=== PATIENT | male | born 1930 | race Caucasian/White ===

== ENCOUNTER 2020-04-12 10:19 | Outpatient (CLI) | payer MEDICARE, OTHER ==
[~2020-04-12 10:19] MED LIST: ALLO300T PO; AMLO-150 PO; ASPI-496 PO; ATOR20TA37 PO; CLON0.1T22 PO; ERGO500017 PO; FURO40TA6 PO; FURO80TA3 PO; GLUC1CAP48 PO; LISI30TA4 PO; LOSA100T14 PO; METR500T PO; REGADENOSON 0.4 MG/5 ML SYRINGE ONE; SEVE800T8 PO; SPIR25TA5 PO; VIT1TABL32 PO
== END 2020-04-13 23:59 | disposition home or self-care (01) ==
LOC: CFH 10:19
PROVIDERS: ATTEND Internal Medicine Cardiovascular Disease
DX: I08.0 Rheumatic disorders of both mitral and aortic valves (principal); I48.91 Unspecified atrial fibrillation; I21.29 ST elevation (STEMI) myocardial infarction involving other sites; I11.9 Hypertensive heart disease without heart failure
CPT/HCPCS: 78452; 93017; 93306; A9502; J2785

== ENCOUNTER 2020-08-29 19:38 | Emergency (ER) | payer MEDICARE, OTHER ==
[~2020-08-29] VITALS: Ht 185.4 cm; Wt 105.0 kg
[~2020-08-29 19:38] MED LIST changes: +ALLO100T30 PO; +APIX2.5T PO; +DOXA1TAB PO; +DOXY100T PO; -REGADENOSON 0.4 MG/5 ML SYRINGE ONE
--- NOTE | 2020-08-29 20:15 | NUR ---
PER PT DAUGHTER, DIALYSIS PORT PLACED 6 DAYS AGO, ONE EPISODE OF BLEEDING AT HOME THAT DAUGHTER WAS ABLE TO STOP BY HOLDING PRESSURE. PT RESENTS TODAY WITH C/O BLEEDING AT PORT SITE. SITE CLEANED OF ALL BLOOD CLOTS AND ASSESSED BY DR PLUNKETT. PER DAUGHTER, PT TAKES NO BLOOD THINNERS.
[2020-08-29] MEDS ORDERED: MICROFIBRILLAR COLLAGEN 1 GM TP ONE ×2 (20:45→21:00)
--- NOTE | 2020-08-29 20:45 | NUR ---
AVETINE AND SANDBAG PLACED TO STOP BLEEDING
[2020-08-29 20:46] LABS: ALBUMIN 2.8 g/dL (3.4-5.0); ANION GAP 7 mmol/L (5-15); CALCIUM 8.6 mg/dL (8.5-10.1); CHLORIDE 98 mmol/L (98-107); CREATININE 4.08 mg/dL (0.7-1.3)
[2020-08-29 20:49] LABS: BASOPHILS % (AUTO) 0 % (0-1); EOSINOPHILS % (AUTO) 0 % (1-7); LYMPHOCYTES % (AUTO) 9 % (22-44); MEAN CORPUSCULAR HEMOGLOBIN 35.7 pg (27.5-34.5); MEAN CORPUSCULAR HGB CONC 33.6 g/dL (33.2-36.2); MEAN PLATELET VOLUME 9.7 fL (7.4-10.4); MONOCYTES % (AUTO) 6 % (2-9); NEUTROPHILS % (AUTO) 85 % (42-75); PLATELET COUNT 53 x10^3/uL (130-400); RED BLOOD COUNT 2.45 x10^6/uL (4.38-5.82); RED CELL DISTRIBUTION WIDTH 15.5 % (9.4-14.8)
[2020-08-29 21:18] LABS: INTERNATIONAL NORMALIZED RATIO 1.04 (0.93-1.1); PROTHROMBIN TIME 11.1 Seconds (9.6-11.5)
--- NOTE | 2020-08-29 21:23 | NUR ---
PORT RE ASSESSED. STILL BLEEDING. DR PLUNKETT NOTIFIED
--- NOTE | 2020-08-29 21:52 | NUR ---
UNSUCCESSFUL IV ATTEMPT. LANORA IN TO ATTEMPT IV FOR CT SCAN
--- NOTE | 2020-08-29 21:56 | NUR ---
UNSUCCESSFUL ATTEMPT BY ALEXANDRA ALSO
--- NOTE | 2020-08-29 22:03 | NUR ---
AMRIK AT BEDSIDE TO ATTEMPT ULTRASOUND IV
--- NOTE | 2020-08-29 22:08 | NUR ---
DR PLUNKETT AT BEDSIDE TO REASSESS PORT. STILL BLEEDING. SANDBAG REMAINS IN PLACE
[2020-08-29] MEDS ORDERED: LIDOCAINE 1%-EPI 1:100K, 20ML INFIL ONE (22:30)
--- NOTE | 2020-08-29 22:45 | NUR ---
DR PLUNKETT AT BEDSIDE TO REVISE DIALYSIS PORT ENTRY SITE. NO BLEEDING OBVIOUS AFTER LIDO/EPI AND NEW SUTURES. KURLEX AND COBAND APPLIED. SANDBAG FOR ADDITIONAL 30 MINS TO ENSURE BLEEDING HAS STOPPED.
--- NOTE | 2020-08-29 23:36 | NUR ---
DR PLUNKETT STATES NOT TO TREAT HTN. PT TO RESUME HOME MED SCHEDULE AT HOME. SAD BAG WAS REMOVED AT 2315 AND NO SIGNS OF BLEEDING.
--- NOTE | 2020-08-29 23:37 | NUR ---
IS PROVIDED TO PT AND EDUCATED ON ITS USE. FAMILY EDUCATED WELL
[2020-08-30] MEDS ORDERED: DOXAZOSIN 1MG TABLET PO ONE
[2020-08-30 00:09] VITALS: BP 184/84
--- NOTE | 2020-08-30 00:09 | NUR ---
CARE ASSUMED FOR DC. PT DC'D HOME WITH FAMILY. TO DC DESK BY W/C.
== END 2020-08-30 00:11 | disposition home or self-care (01) ==
LOC: ED 21:08
DX: S21.111A Laceration without foreign body of right front wall of thorax without penetration into thoracic cavity, initial encounter (principal); L76.82 Other postprocedural complications of skin and subcutaneous tissue; I11.0 Hypertensive heart disease with heart failure; I50.9 Heart failure, unspecified; I48.91 Unspecified atrial fibrillation; X58.XXXA Exposure to other specified factors, initial encounter; Y93.89 Activity, other specified; Y92.89 Other specified places as the place of occurrence of the external cause; Y99.8 Other external cause status
CPT/HCPCS: 12001; 12031; 36415; 71045; 80048; 82040; 85025; 85610; 85730; 99284

== ENCOUNTER 2020-10-21 12:57 | Inpatient (IN) | payer MEDICARE, OTHER ==
[~2020-10-21] VITALS: Ht 180.3 cm; Wt 115.5 kg
[2020-10-21] MEDS ORDERED: PLEASE ENTER HEIGHT AND WEIGHT MC SCH (13:30)
[2020-10-21] MEDS ORDERED: SODIUM CHLORIDE FLUSH 10ML SYR IVF ONE (13:30)
[2020-10-21 14:13] LABS: BASOPHILS % (AUTO) 1 % (0-1); EOSINOPHILS % (AUTO) 1 % (1-7); LYMPHOCYTES % (AUTO) 11 % (22-44); MEAN CORPUSCULAR HEMOGLOBIN 34.3 pg (27.5-34.5); MEAN PLATELET VOLUME 10.5 fL (7.4-10.4); MONOCYTES % (AUTO) 7 % (2-9); NEUTROPHILS % (AUTO) 82 % (42-75); PLATELET COUNT 116 x10^3/uL (130-400); RED BLOOD COUNT 3.39 x10^6/uL (4.38-5.82); RED CELL DISTRIBUTION WIDTH 14.9 % (9.4-14.8)
[2020-10-21 14:23] LABS: ALBUMIN 3.1 g/dL (3.4-5.0); ANION GAP 9 mmol/L (5-15); CHLORIDE 105 mmol/L (98-107)
[2020-10-21 14:26] LABS: ALANINE AMINOTRANSFERASE 13 U/L (12-78); ALKALINE PHOSPHATASE 64 U/L (45-117); BILIRUBIN,TOTAL 0.8 mg/dL (0.2-1.0); CREATININE 8.91 mg/dL (0.7-1.3); TOTAL PROTEIN 6.8 g/dL (6.4-8.2)
[2020-10-21] MEDS ORDERED: ONDANSETRON ODT 4 MG PO PRN (15:30)
[2020-10-21] MEDS ORDERED: ENALAPRILAT 1.25 MG/ML, 2ML IVPush PRN (15:30)
[2020-10-21] MEDS ORDERED: HEPARIN 5,000 UNITS/ML, 1ML SQ SCH (15:30)
[2020-10-21] MEDS ORDERED: ONDANSETRON 2MG/ML, 2ML IVPush PRN (15:30)
[2020-10-21] MEDS ORDERED: DOCUSATE 100 MG CAPSULE PO PRN (15:30)
[2020-10-21] MEDS ORDERED: MELATONIN 5 MG TABLET PO PRN (15:30)
[2020-10-21] MEDS ORDERED: SODIUM CHLORIDE FLUSH 10ML SYR IVF PRN ×2 (15:30)
[2020-10-21] MEDS ORDERED: ACETAMINOPHEN 325 MG TABLET PO PRN (15:30)
--- NOTE | 2020-10-21 16:15 | NUR ---
PT TO IR
[2020-10-21] MEDS ORDERED: FLUMAZENIL 0.1 MG/1 ML, 5ML ONE (16:18)
[2020-10-21] MEDS ORDERED: NALOXONE 1 MG/ML, 2ML ONE (16:18)
[2020-10-21] MEDS ORDERED: MIDAZOLAM 1 MG/ML, 5ML ONE (16:18)
[2020-10-21] MEDS ORDERED: FENTANYL PF 100 MCG/2ML ONE (16:19)
[2020-10-21] MEDS ORDERED: LIDOCAINE 1%, 10ML ONE (16:36)
[2020-10-21] MEDS ORDERED: LIDOCAINE 1%, 20ML ONE (16:37)
[2020-10-21] MEDS: SEVELAMER CARBONATE 800MG TAB PO SCH (17:00)
--- NOTE | 2020-10-21 17:32 | NUR ---
REC REPORT FROM IR CATH PLACED 1 VERSED AND 35 FENT TOLERATED WELL
[2020-10-21] MEDS ORDERED: VISIPAQUE 320MG/ML, 50ML BOTTLE ONE (17:37)
--- NOTE | 2020-10-21 17:55 | NUR ---
REPORT GIVEN TO FLOOR RN
[2020-10-21 18:20] VITALS: BP 206/106
[2020-10-21 18:30] VITALS: BP 206/106
[2020-10-21] MEDS: hydrALAzine 20 MG/ML, 1ML IVPush PRN (18:55)
[2020-10-21 20:00] VITALS: BP 175/73
[2020-10-21] MEDS: ATORVASTATIN 20 MG TABLET PO SCH (22:51)
[2020-10-22] MEDS: CATHFLO-ALTEPLASE 2 MG/2 ML CATHFLUSH PRN ×2 (00:24→00:25)
[2020-10-22 00:43] VITALS: BP 166/92
[2020-10-22 04:02] LABS: BASOPHILS % (AUTO) 1 % (0-1); EOSINOPHILS % (AUTO) 1 % (1-7); LYMPHOCYTES % (AUTO) 10 % (22-44); MEAN CORPUSCULAR HEMOGLOBIN 34.1 pg (27.5-34.5); MEAN CORPUSCULAR HGB CONC 33.1 g/dL (33.2-36.2); MEAN PLATELET VOLUME 10.4 fL (7.4-10.4); MONOCYTES % (AUTO) 8 % (2-9); NEUTROPHILS % (AUTO) 81 % (42-75); PLATELET COUNT 111 x10^3/uL (130-400); RED BLOOD COUNT 3.34 x10^6/uL (4.38-5.82); RED CELL DISTRIBUTION WIDTH 15.4 % (9.4-14.8)
[2020-10-22 04:11] LABS: ALBUMIN 2.5 g/dL (3.4-5.0); ANION GAP 9 mmol/L (5-15); CALCIUM 8.6 mg/dL (8.5-10.1); CHLORIDE 106 mmol/L (98-107); CREATININE 8.74 mg/dL (0.7-1.3)
[2020-10-22] MEDS ORDERED: ERGOCALCIFEROL 50,000 UNIT CAPSULE PO SCH (06:30)
[2020-10-22 08:07] VITALS: BP 164/82
[2020-10-22] MEDS ORDERED: APIXABAN 2.5 MG TABLET PO SCH (09:00)
[2020-10-22] MEDS: ALLOPURINOL 100 MG TABLET PO SCH (10:33)
[2020-10-22] MEDS: SEVELAMER CARBONATE 800MG TAB PO SCH ×3 (10:33→17:39)
[2020-10-22] MEDS: DOXAZOSIN 1MG TABLET PO SCH (10:33)
[2020-10-22] MEDS: FUROSEMIDE 80 MG TABLET PO SCH ×2 (10:33→17:39)
[2020-10-22 13:01] VITALS: BP 163/70
[2020-10-22] MEDS: AMOXICILLIN/CLAV 500-125MG TABLET PO SCH ×2 (13:11→23:47)
[2020-10-22] MEDS ORDERED: METOPROLOL TARTRATE 25 MG TAB PO SCH (13:30)
[2020-10-22] MEDS ORDERED: LIDOCAINE 1%, 20ML ONE (13:53)
[2020-10-22] MEDS ORDERED: FENTANYL PF 100 MCG/2ML ONE (13:53)
[2020-10-22] MEDS ORDERED: NALOXONE 1 MG/ML, 2ML ONE (13:53)
[2020-10-22] MEDS ORDERED: LIDOCAINE 1%, 10ML ONE (13:56)
[2020-10-22 15:45] VITALS: BP 161/83
[2020-10-22 17:41] VITALS: BP 177/89
[2020-10-22 18:51] VITALS: BP 178/81
[2020-10-22] MEDS: hydrALAzine 20 MG/ML, 1ML IVPush PRN (20:21)
[2020-10-22] MEDS: METOPROLOL TARTRATE 25 MG TAB PO SCH (20:22)
[2020-10-22] MEDS: ATORVASTATIN 20 MG TABLET PO SCH (20:38)
[2020-10-23 00:36] VITALS: BP 163/66
[2020-10-23 06:50] VITALS: BP 177/75
[2020-10-23 07:00] LABS: CHLORIDE 106 mmol/L (98-107)
[2020-10-23 07:04] LABS: ANION GAP 8 mmol/L (5-15); CALCIUM 8.9 mg/dL (8.5-10.1); CREATININE 9.03 mg/dL (0.7-1.3)
[2020-10-23 07:05] LABS: BASOPHILS % (AUTO) 1 % (0-1); EOSINOPHILS % (AUTO) 1 % (1-7); LYMPHOCYTES % (AUTO) 11 % (22-44); MEAN CORPUSCULAR HEMOGLOBIN 34.1 pg (27.5-34.5); MEAN CORPUSCULAR HGB CONC 32.9 g/dL (33.2-36.2); MEAN PLATELET VOLUME 10.1 fL (7.4-10.4); MONOCYTES % (AUTO) 8 % (2-9); NEUTROPHILS % (AUTO) 79 % (42-75); PLATELET COUNT 120 x10^3/uL (130-400); RED BLOOD COUNT 3.27 x10^6/uL (4.38-5.82)
[2020-10-23] MEDS: FUROSEMIDE 80 MG TABLET PO SCH ×2 (07:30→17:06)
[2020-10-23] MEDS: SEVELAMER CARBONATE 800MG TAB PO SCH ×3 (08:00→17:06)
[2020-10-23] MEDS: METOPROLOL TARTRATE 25 MG TAB PO SCH (13:07)
[2020-10-23] MEDS: DOXAZOSIN 1MG TABLET PO SCH (13:07)
[2020-10-23] MEDS: ALLOPURINOL 100 MG TABLET PO SCH (13:07)
[2020-10-23] MEDS: AMOXICILLIN/CLAV 500-125MG TABLET PO SCH (13:14)
[2020-10-23 14:51] VITALS: BP 154/78
[2020-10-23] MEDS ORDERED: AMOX-367 PO (18:19)
[2020-10-23] MEDS ORDERED: METO25TA35 PO (18:19)
== END 2020-10-23 21:31 | disposition home health service (06) | DRG 252 ==
LOC: SUATTDRO 15:21 → ED 16:00 → EDIP 18:21 → 4EST 18:33
PROVIDERS: ADMIT Hospitalist; ATTEND Hospitalist
PROC: 02PYX3Z Removal of Infusion Device from Great Vessel, External Approach (ICD-10-PCS; principal; 2020-10-21)
PROC: 02HV33Z Insertion of Infusion Device into Superior Vena Cava, Percutaneous Approach (ICD-10-PCS; 2020-10-21)
PROC: B5181ZA Fluoroscopy of Superior Vena Cava using Low Osmolar Contrast, Guidance (ICD-10-PCS; 2020-10-21)
PROC: 027V3ZZ Dilation of Superior Vena Cava, Percutaneous Approach (ICD-10-PCS; 2020-10-21)
DX: T82.868A Thrombosis due to vascular prosthetic devices, implants and grafts, initial encounter (principal); N18.6 End stage renal disease; I48.20 Chronic atrial fibrillation, unspecified; I13.2 Hypertensive heart and chronic kidney disease with heart failure and with stage 5 chronic kidney disease, or end stage renal disease; E87.2 Acidosis; C64.9 Malignant neoplasm of unspecified kidney, except renal pelvis; T82.41XA Breakdown (mechanical) of vascular dialysis catheter, initial encounter; I35.0 Nonrheumatic aortic (valve) stenosis; D63.1 Anemia in chronic kidney disease; E78.5 Hyperlipidemia, unspecified; D69.6 Thrombocytopenia, unspecified; I50.9 Heart failure, unspecified; M10.9 Gout, unspecified; M89.8X9 Other specified disorders of bone, unspecified site; Y71.2 Prosthetic and other implants, materials and accessory cardiovascular devices associated with adverse incidents; Z85.46 Personal history of malignant neoplasm of prostate; Z85.528 Personal history of other malignant neoplasm of kidney; Z90.5 Acquired absence of kidney; Z99.2 Dependence on renal dialysis
CPT/HCPCS: 36415; 36581; 36595; 71045; 75984; 80048; 80053; 80069; 84145; 85025; 86705; 86706; 87340; 90935; 93005; 96374; 99156; 99157; 99285; C1725; G0378; J2250; J2997; J3010; Q9967; C1750; C1751; C1769; G0365; J0360; J1642; J2310